=== PATIENT | female | born 1990 | race African-American/Black ===

== ENCOUNTER 2016-09-03 12:22 | Emergency (ER) | payer BC ==
[~2016-09-03] VITALS: Ht 157.5 cm; Wt 80.1 kg
[2016-09-03 12:36] VITALS: BP 127/75; PULSE 68; RESP 18; TEMP 98.5; O2SAT 97
--- NOTE | 2016-09-03 12:44 | PD ---
HPI Chief Complaint: Injury Time Seen by Provider: 12:20 Travel History International Travel<30 days: No Contact w/Intl Traveler<30days: No Traveled to known affect area: No History of Present Illness HPI 26-year-old female presents to the emergency room for evaluation of right ankle pain after inversion injury just prior to arrival. Patient was doing an aerial (a cartwheel without hands) and landed crookedly on her ankle. She heard a loud pop and has not been able to bear weight since. States she has history of left ankle sprain and heard the same sound time. Pain is localized to the lateral malleolus with radiation into the lower leg. Worse with range of motion of the ankle or ambulation. She has not taken anything for her symptoms. Denies knee pain. Denies paresthesias. PFSH Social History Tobacco Use: No Allergies-Medications (Allergen,Severity, Reaction): Coded Allergies: No Known Allergies (Unverified , 09/03/16) Reported Meds & Prescriptions Reported Meds & Active Scripts Active Lortab (Hydrocodone-Acetaminophen) 5-325 Mg Tab 1 Tab PO Q6H PRN Review of Systems Except as stated in HPI: all other systems reviewed are Neg Physical Exam Narrative GENERAL: Well-nourished, well-developed female in no acute distress. Afebrile. Ambulatory. SKIN: Focused skin assessment warm/dry. No erythema or ecchymosis. HEAD: Normocephalic. EYES: No scleral icterus. No injection or drainage. NECK: Supple, trachea midline. No JVD or lymphadenopathy. CARDIOVASCULAR: Regular rate and rhythm without murmurs, gallops, or rubs. RESPIRATORY: Breath sounds equal bilaterally. No accessory muscle use. MUSCULOSKELETAL: No cyanosis. No obvious edema. 2+ dorsalis pedis pulse. Limited range of motion of the ankle secondary to pain. Positive squeeze test. Tenderness to palpation of the distal lower leg and right lateral malleolus. No tenderness to palpation of the foot or knee. Data Data Last Documented VS Vital Signs Date Time Temp Pulse Resp B/P Pulse Ox O2 Delivery O2 Flow Rate FiO2 09/03/16 12:36 98.5 68 18 127/75 97 Orders Tibia/Fibula (Ap/Lat) (09/03/16 ) Ankle, Complete ([id number]) (09/03/16 ) Splint Or Brace Apply/Monitor (09/03/16 13:08) Crutches (09/03/16 13:09) Acetamin-Hydrocod 325-5 Mg (Law[place] 5-325 (09/03/16 13:30) MDM Medical Decision Making Medical Screen Exam Complete: Yes Emergency Medical Condition: Yes Medical Record Reviewed: Yes Differential Diagnosis Sprain, strain, fracture, dislocation, high sprain Narrative Course 26-year-old female presents to the emergency room for evaluation of right ankle pain after inversion injury just prior to arrival. Patient denies paresthesias , knee pain, or foot pain. She has been unable to ambulate. Physical exam is reassuring. No significant edema, erythema, or ecchymosis. Her extremity is neurovascularly intact with 2+ dorsalis pedis pulse. Limited range of motion secondary to pain. Tenderness to palpation especially over the right lateral malleolus. X-ray shows mid to distal fibular shaft fracture. She was given Lortab in the emergency room. Patient placed in [place] splint and discharged with crutches and prescription for Lortab. Told to follow-up with her primary care physician and/or orthopedic surgeon or return for worsening symptoms. She understands and agrees to plan. Diagnosis Primary Impression: Closed fibular fracture Qualified Code: S82.831A - Closed fracture of distal end of right fibula, unspecified fracture morphology, initial encounter Referrals: Primary Care Physician Patient Instructions: General Instructions, Leg Fracture (ED) Additional Instructions: Rest and drink plenty of fluids. Take Lortab, as needed for pain. Do not drink alcohol or drive while taking this medication. Take ibuprofen with food as directed, as needed for pain. Elevate and apply ice to the affected area for 20 minutes at a time, as needed for pain and swelling. Do not bear weight. Follow-up with an orthopedic surgeon. Return to the emergency room for worsening symptoms. Med/Other Pt SpecificInfo: Prescription(s) given Scripts Hydrocodone-Acetaminophen (Lortab)5-325 Mg Tab1 Tab PO Q6H PRN (PAIN) #12 TAB Ref 0 Prov:Saravanan Cisneros MD 09/03/16 Disposition: 01 DISCHARGE HOME Condition: Stable Radha Casanova Sep 03, 2016 12:44
[2016-09-03] MEDS ORDERED: HYDR-3533 PO (13:21)
--- NOTE | 2016-09-03 13:27 | RADRPT ---
EXAM DATE/TIME: 09/03/2016 12:54 [facility] COMPARISON: No previous studies available for comparison. INDICATIONS : Fall, complains of right ankle pain. MEDICAL HISTORY : None. SURGICAL HISTORY : None. ENCOUNTER: Initial ACUITY: 1 day PAIN SCORE: 8/10 LOCATION: Right lateral ankle FINDINGS: There is an acute minimally angulated fracture involving the right mid to distal fibular shaft. CONCLUSION: 1. Acute minimally angulated fracture involving the right mid to distal fibular shaft. Alex Britton MD on September 03, 2016 at 13:15 Board Certified Radiologist. This report was verified electronically.
--- NOTE | 2016-09-03 13:28 | RADRPT ---
EXAM DATE/TIME: 09/03/2016 12:54 [facility] COMPARISON: No previous studies available for comparison. INDICATIONS : Fall, complains of right lower, posterior leg pain. MEDICAL HISTORY : None. SURGICAL HISTORY : None. ENCOUNTER: Initial ACUITY: 1 day PAIN SCORE: 8/10 LOCATION: Right lateral tibia FINDINGS: There is an acute minimally angulated fracture involving the mid to distal fibular shaft. The tibia is intact. CONCLUSION: 1. Acute minimally angulated fracture involving the mid to distal fibular shaft. Alex Britton MD on September 03, 2016 at 13:16 Board Certified Radiologist. This report was verified electronically.
[2016-09-03] MEDS ORDERED: ACETAMINOPHEN/HYDROcodone 325 MG/5 MG TAB PO ONE (13:30)
[2016-09-03] MEDS ORDERED: ONDANSETRON ODT 4 MG TAB PO ONE (14:00)
== END 2016-09-03 14:23 | disposition home or self-care (01) ==
LOC: PHEFT 12:22
DX: S82.831A Other fracture of upper and lower end of right fibula, initial encounter for closed fracture (principal); X58.XXXA Exposure to other specified factors, initial encounter; Y93.43 Activity, gymnastics
CPT/HCPCS: 29515; 73590; 73610; 99283; E0113

== ENCOUNTER 2016-09-06 11:28 | Emergency (ER) | payer BC ==
[~2016-09-06] VITALS: Ht 157.5 cm; Wt 78.0 kg
[~2016-09-06 11:28] MED LIST: HYDR-3533 PO
[2016-09-06 11:32] VITALS: BP 148/71; PULSE 93; RESP 16; TEMP 97.7; O2SAT 100
--- NOTE | 2016-09-06 11:59 | PD ---
HPI Chief Complaint: Wound/Suture/Staple Re-Check Time Seen by Provider: 11:55 Travel History International Travel<30 days: No Contact w/Intl Traveler<30days: No Traveled to known affect area: No History of Present Illness HPI 26-year-old Afro-[place] female presents the emergency department status post fibular shaft fracture on 08/31/2016. Patient was placed in a [place] splint and crutches. Patient feels the splint is too loose, and feels that it is wanting to fall off. She denies any significant pain, tingling, or other symptoms. She has no known drug allergies. PFSH Past Medical History Medical History: Denies Significant Hx High Cholesterol: Yes Diminished Hearing: No Gastrointestinal Disorders: Yes (colitis approx 2012) GERD: Yes Tetanus Vaccination: > 5 Years Influenza Vaccination: No ?: Not Menopausal: No Past Surgical History Abdominal Surgery: Yes (hernia removal approx 2013) Social History Alcohol Use: Yes (socially) Tobacco Use: No Substance Use: No Allergies-Medications (Allergen,Severity, Reaction): Coded Allergies: No Known Allergies (Unverified , 09/06/16) Reported Meds & Prescriptions Reported Meds & Active Scripts Active Lortab (Hydrocodone-Acetaminophen) 5-325 Mg Tab 1 Tab PO Q6H PRN Review of Systems Except as stated in HPI: all other systems reviewed are Neg General / Constitutional: No: Fever Eyes: No: Visual changes HENT: No: Headaches Cardiovascular: No: Chest Pain or Discomfort Respiratory: No: Shortness of Breath Gastrointestinal: No: Abdominal Pain Genitourinary: No: Dysuria Musculoskeletal: No: Pain Skin: No Rash Neurologic: No: Weakness Psychiatric: No: Depression Endocrine: No: Polydipsia Hematologic/Lymphatic: No: Easy Bruising Physical Exam Narrative GENERAL: Patient is in no acute distress. SKIN: Warm and dry. Normal color. Normal turgor. HEAD: Atraumatic. Normocephalic. EYES: Pupils equal and round. No scleral icterus. No injection or drainage. ENT: No nasal bleeding or discharge. Mucous membranes pink and moist. Thanks is clear. NECK: Trachea midline. Supple nontender. CARDIOVASCULAR: Regular rate and rhythm. RESPIRATORY: No accessory muscle use. MUSCULOSKELETAL: Extremities without clubbing, cyanosis, or edema. Splint is not completely removed. Foot and toes and can be seen appear normal without decreased capillary refill or decreased sensation. NEUROLOGICAL: Awake and alert. No obvious cranial nerve deficits. Motor grossly within normal limits. Normal speech. PSYCHIATRIC: Appropriate mood and affect; insight and judgment normal. Data Data Last Documented VS Vital Signs Date Time Temp Pulse Resp B/P Pulse Ox O2 Delivery O2 Flow Rate FiO2 09/06/16 11:32 97.7 93 16 148/71 100 MDM Medical Decision Making Medical Screen Exam Complete: Yes Emergency Medical Condition: Yes Medical Record Reviewed: Yes Differential Diagnosis Right fibular fracture. Loose cast. Cast revision Narrative Course Patient is medically stable at time of exam. Previous splint is reinforce with howard bandages with improved comfort and fit. Continue crutches as previous. Follow-up with orthopedist next Saturday as scheduled. Diagnosis Primary Impression: Closed fibular fracture Qualified Code: S82.454D - Closed nondisplaced comminuted fracture of shaft of right fibula with routine healing, subsequent encounter Additional Impression: Cast discomfort Referrals: Orthopedist Patient Instructions: Crutch Instructions (ED), General Instructions, Splint Care (ED) Additional Instructions: Previous splint is reinforced with howard bandages with improved comfort and fit. Continue crutches as previous. Follow-up with orthopedist next Saturday as scheduled. Med/Other Pt SpecificInfo: No Change to Meds Disposition: 01 DISCHARGE HOME Condition: Stable Cruz Browne Sep 06, 2016 11:59
== END 2016-09-06 12:06 | disposition home or self-care (01) ==
LOC: PHEFT 11:28
DX: S82.454D Nondisplaced comminuted fracture of shaft of right fibula, subsequent encounter for closed fracture with routine healing (principal); X58.XXXD Exposure to other specified factors, subsequent encounter
CPT/HCPCS: 99282